=== PATIENT | male | born 2005 | race Caucasian/White ===

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

== ENCOUNTER 2025-02-18 02:53 | Emergency (ER) | payer OTHER, SELFPAY ==
--- OUTSIDE RECORDS SUMMARY | 2025-02-18 02:55 | XMS_ITS | Referral Summary ---
Author Organization [facility] Address [id number] [place] [id number] Care Team Providers Care Drill Instructor Name Role Phone Sarwat Fernandez MD Primary Care Provider Allergies No known active allergies Medications ibuprofen (MOTRIN, ADVIL) 200 mg tablet Take 200 mg by mouth every 6 hours if needed for mild pain. Active Active Problems Problem Noted Date Diagnosed Date Left hip pain 02/17/2019 Immunizations Immunization Administration Dates Next Due ([id number]) Pfizer Covid-19 vaccine (12YO+ SERIES) PURPLE CAP 01/13/2021 Social History Tobacco Use Types Packs/Day Years Used Date Smoking Tobacco: Never Smokeless Tobacco: Never Alcohol Use Standard Drinks/Week Comments No 0 (1 standard drink = 0.6 oz pur e alcohol) Interpersonal Safety Answer Date Record ed Social Work Risk 19 07/11/2023 Sex and Gender Information Value Date Recorded Sex Assigned at Not on file Legal Sex Male 10:42 PM PDT Gender Identity Not on file Sexual Orientation Not on file Last Filed Vital Signs Vital Sign Reading Time Taken Comments Blood Pressure 104/65 02/17/2019 8:27 AM PDT Pulse 65 02/17/2019 8:27 AM PDT Temperature 36.6 C (97.9 F) 09/22/2018 5:00 PM PST Respiratory Rate 20 09/22/2018 5:00 PM PST Oxygen Saturation 100% 09/22/2018 5:00 PM PST Inhaled Oxygen Concentration - - Weight 72.6 kg (160 lb) 02/17/2019 8:27 AM PDT Height 172.7 cm (5' 8) 02/17/2019 8:27 AM PDT Body Mass Index 24.33 02/17/2019 8:27 AM PDT Plan of Treatment Not on file Insurance [employer] HMO Care Teams Drill Instructor Relationship Specialty Start Date End Date Sarwat Fernandez MD [facility] [address] [place], [place] [id number] PCP - General Pediatrics 09/22/18
--- OUTSIDE RECORDS SUMMARY | 2025-02-18 02:55 | XMS_ITS | Clinical Summary ---
Author Organization [facility] Address [address] [place] [id number] Care Team Providers Care Basin Operator Name Role Phone Sarwat Fernandez MD Primary Care Provider Allergies No known active allergies Medications ibuprofen (MOTRIN, ADVIL) 200 mg tablet Take 200 mg by mouth every 6 hours if needed for mild pain. Active Active Problems Problem Noted Date Diagnosed Date Left hip pain 02/17/2019 Immunizations Immunization Administration Dates Next Due ([id number]) Pfizer Covid-19 vaccine (12YO+ SERIES) PURPLE CAP [...] 02/17/2019 8:27 AM PDT Plan of Treatment Health Maintenance Due Date Last Done Comments Hepatitis B Immunity 2004 HPV Vaccines (1 - Male 3-dos e series) 02/02/2019 Hepatitis C Screening 02/02/2022 DTaP, Tdap, and Td Vaccines (1 - Tdap) 02/02/2023 COVID-19 Vaccine (2 - 2024-2 5 season) 2024 01/13/2021 Depression Screening (Billin g for this is optional) 09/27/2024 Social Drivers of Health (SDoH) 09/27/2024 Influenza Vaccine (Season Ended) 2025 07/12/2018, 07/25/2016 Meningococcal Vaccine Aged Out No ann-marie alyssa eligible based on patient's age to complete this topic Pneumococcal Vaccines Aged Out No ann-marie alyssa eligible based on patient's age to complete this topic Insurance AENA HMO Care Teams Basin Operator Relationship Specialty Start Date End Date Sarwat Fernandez MD [address] [place], [place] [address] PCP - General Pediatrics 09/22/18
--- OUTSIDE RECORDS SUMMARY | 2025-02-18 02:56 | XMS_ITS | Patient Health Record ---
Author Organization [facility] Address [address] [place] [address] Care Team Providers Care Application Support Consultant Name Role Phone Goodman FERGUSON, Manpreet Primary Care Provider Unavailab CIARA Rosas Unavailable [phone] Salinas Owens MD Unavailable Unavailable Reason For Referral No Information Problems Problem Type SNOMED Code ICD Code Onset Dates Problem Status W/U Status Risk Notes Problem Sialolithiasis (20117308) Sialolithiasis (K11.5) Active confirmed Plan Of Treatment No Information Insurance Providers Payer Name Payer Address Payer Phone Subscriber Number Group Number Insured Name Patient Relationship to Insured Coverage Start Date Coverage End Date [employer] [address] [address] [place] [id number] Eddie Naylor Self - patient is the insured Medical (General) History Medical History History ICD Code Seasonal Allergies Sialolithiasis Surgical History Surgery Date(Month/Year)
[2025-02-18 03:00] VITALS: BP 128/83; PULSE 54; RESP 16; TEMP 36.3; O2SAT 98; BMI 24.3
--- NOTE | 2025-02-18 03:10 | ED.GENADULT ---
HPI - General Adult General Chief complaint: Unspecified Complaint, Adult Stated complaint: allergic reaction History of Present Illness HPI narrative: Patient is a 20-year-old gentleman who has seasonal allergies who has been taking his Zyrtec and Flonase but is still unable to keep up with his allergy symptoms. He has itchy eyes runny nose cough congestion. No signs of illness such as fever chills. He is not necessarily short of breath certainly has no chest pain orthopnea or PND. Symptoms have been worsening for last several days. Patient was treated successfully with prednisone last fall. Related Data Home Medications ?Medication ?Instructions ?Recorded ?Confirmed cetirizine 10 mg tablet (24Hour 5 mg PO DAILY PRN 02/22/23 02/22/23 Allergy) Previous Rx's ?Medication ?Instructions ?Recorded olopatadine 0.2 % eye drops 1 drp ophthalmic (eye) DAILY PRN 02/19/23 (Pataday Once Daily Relief) itching #2.5 mL triamcinolone acetonide 55 mcg 2 spray intranasal DAILY #16.9 mL 02/19/23 nasal spray aerosol Allergies Allergy/AdvReac Type Severity Reaction Status Date / Time No Known Drug Allergies Allergy Verified 02/22/23 04:26 Review of Systems Status of ROS: Reports: 10 or more systems reviewed and unremarkable except as noted in History and below [facility] Medical History No significant past medical history Surgical History No significant past surgical history Social History Smoking Status: Never smoker Do you use any of these nicotine containing products: None Second hand tobacco smoke exposure: No How often do you have a drink containing alcohol: never AUDIT-C Alcohol total score: 0 Non-prescribed substance use: denies use Exam Narrative: Exam Narrative: EXAM GENERAL: Patient appears comfortable and well. EYES: No scleral icterus. LYMPH: No supraclavicular or cervical lymphadenopathy. SKIN: Visible skin seen during exam normal or with benign process only. EXT: No dependent lower extremity pedal edema. HEART: Regular rate and rhythm with no murmurs, rubs, or gallops. LUNGS: Clear to auscultation bilaterally with no crackles or wheezes. ABD: Soft, non tender, non distended. PSYCH: Good eye contact, speech is not pressured. Const: Vital Signs, click to edit/add: Vital Signs - 24 hr 02/18/25 03:00 Temperature 97.3 F L Pulse Rate [Left P ulse Oximeter] 54 L Respiratory Rate 16 Blood Pressure [Ri ght Upper Arm] 128/83 Pulse Oximetry 98 Oxygen Delivery Me thod Room Air Course Vital Signs Vital signs: Initial Vital Signs Temperature 97.3 F L 02/18/25 03:00 Temperature Source Temporal Artery Scan 02/18/25 03:00 Pulse Rate 54 L 02/18/25 03:00 Respiratory Rate 16 02/18/25 03:00 Blood Pressure 128/83 02/18/25 03:00 Blood Pressure Mean 98 02/18/25 03:00 Blood Pressure Position Sitting 02/18/25 03:00 Pulse Oximetry 98 02/18/25 03:00 Oxygen Delivery Method Room Air 02/18/25 03:00 Vital Signs Temperature 97.3 F L 02/18/25 03:00 Pulse Rate 54 L 02/18/25 03:00 Respiratory Rate 16 02/18/25 03:00 Blood Pressure 128/83 02/18/25 03:00 Pulse Oximetry 98 02/18/25 03:00 Oxygen Delivery Method Room Air 02/18/25 03:00 Temperature 97.3 F L 02/18/25 03:00 Pulse Rate 54 L 02/18/25 03:00 Respiratory Rate 16 02/18/25 03:00 Blood Pressure 128/83 02/18/25 03:00 Pulse Oximetry 98 02/18/25 03:00 Oxygen Delivery Method Room Air 02/18/25 03:00 Medical Decision Making [facility] Narrative Medical decision making narrative: Patient presents with seasonal allergies. He is on typical medications I do think those could be bumped up at his primary care office. I did give him 5 day course of prednisone will see him back on a p.r.n. basis he will continue his current medications. Discharge Plan Discharge Clinical Impression: Acute seasonal allergic rhinitis Patient Disposition: Home, Self-Care Condition: Stable Instructions: Allergies (ED) Additional Instructions: Prednisone as directed Continue current medications Follow-up with your doctor as needed. Activity Level: No Restrictions Discharge Diet: Regular Prescriptions: No Action olopatadine [Pataday Once Daily Relief] 0.2 % drops 1 drp ophthalmic (eye) DAILY PRN (Reason: itching) Qty: 2.5 0RF triamcinolone acetonide 55 mcg aerosol,spray 2 spray intranasal DAILY Qty: 16.9 0RF Rx Instructions: administer into each nostril cetirizine [24Hour Allergy] 10 mg tablet 5 mg PO DAILY PRN Follow Up/Referrals: Provider,Not a Local [Primary Care Provider, Family Practice] Stand Alone Forms: [employer] Info Instructions
== END 2025-02-18 03:19 | disposition home or self-care (01) ==
LOC: ED 03:17
PROVIDERS: Emergency Provider Internal Medicine
DX: J30.2 Other seasonal allergic rhinitis (principal)
CPT/HCPCS: 99283